=== PATIENT | female | born 1965 | race Caucasian/White ===

== ENCOUNTER 2021-08-13 09:07 | Day surgery (SDC) | payer OTHER ==
[2021-08-12 12:35] VITALS: BMI 36.0
[~2021-08-13 09:07] MED LIST: LACTATED RINGERS 1,000 ML IV SCH
[2021-08-13 10:22] VITALS: TEMP 97.5
[2021-08-13] MEDS ORDERED: LIDOCAINE 1% (10MG/ML) FOR IV START INTRADERMA ONE (10:38)
[2021-08-13] MEDS ORDERED: LIDOCAINE 1% INJ 10MG/ML (20 ML MDV) ONE (11:39)
[2021-08-13] MEDS ORDERED: PROPOFOL 10 MG/ML 20 ML VIAL IV ONE (11:39)
--- NOTE | 2021-08-13 12:01 | P.PCN ---
Date of Procedure: 08/13/21 Procedure(s) Performed: BRIEF HISTORY: Patient is a 55-year-old pleasant female scheduled for an elective colonoscopy as a part of screening for colorectal neoplasia. PROCEDURE PERFORMED: Colonoscopy. With biopsy PREOPERATIVE DIAGNOSIS: Screening for colon cancer. IV sedation per Anesthesia. PROCEDURE: After informed consent was obtained, the patient, was brought into the endoscopy unit. IV sedation was administered by Anesthesia under continuous monitoring. Digital rectal examination was normal. Initially the Olympus CF-160 flexible video colonoscope was then inserted in the rectum, gradually advanced into the cecum without any difficulty. Careful examination was performed as the scope was gradually being withdrawn. Ileocecal valve and the appendiceal orifice were visualized and appeared normal. Prep was excellent. Mucosa of the cecum, ascending colon, transverse colon, descending colon, appeared normal.Sigmoid colon there was a 3 mm polyp removed by cold biopsy. Scattered sigmoid diverticulosis seen. Rest of the sigmoid colon, and rectum appeared normal. Retroflexion was performed in the rectum and no lesions were seen. The patient tolerated the procedure well. IMPRESSION: 3 mm sigmoid: Polyp status post cold biopsy Scattered sigmoid diverticulosis RECOMMENDATIONS: Findings of this examination were discussed with the patient well as her family. She was advised to follow with the biopsy results. If the biopsy results adenoma she can have a repeat colonoscopy.
[2021-08-13 12:19] VITALS: BP 152/84; PULSE 70; RESP 16
== END 2021-08-13 12:45 | disposition home or self-care (01) ==
LOC: ORWHC2ENDO 09:07
PROVIDERS: ATTEND Internal Medicine Gastroenterology
DX: Z12.11 Encounter for screening for malignant neoplasm of colon (principal); D12.5 Benign neoplasm of sigmoid colon
CPT/HCPCS: 45380; 88305; J2001; J2704